=== PATIENT | male | born 1985 | race Caucasian/White ===

== ENCOUNTER 2016-08-21 17:23 | Inpatient (IN) | payer OTHER ==
[~2016-08-21] VITALS: Ht 175.3 cm; Wt 111.3 kg
[2016-08-21 17:59] LABS: BASOPHIL % 0.5 % (0-2); PLATELET COUNT 223 x10^3mcL (130-400); RED CELL DISTRIBUTION WIDTH 13.1 % (11.5-14.5)
[2016-08-21 18:09] LABS: CALCIUM 8.7 mg/dL (8.5-10.1); CARBON DIOXIDE 25.6 mmol/L (21-32); CHLORIDE SERUM 107 mmol/L (98-107); CREATININE SERUM 1.2 mg/dL (0.7-1.3); GFR1 > 60 mL/min; GLUCOSE SERUM 112 mg/dL (74-106); POTASSIUM SERUM 3.8 mmol/L (3.5-5.1); SODIUM SERUM 143 mmol/L (136-145)
[2016-08-21 18:13] LABS: ALBUMIN 3.5 g/dL (3.4-5.0); ALKALINE PHOSPHATASE 104 U/L (46-116); ALT/SGPT 37 U/L (16-63); AST/SGOT 20 U/L (15-37); BILIRUBIN TOTAL 0.4 mg/dL (0.20-1.00)
[2016-08-21 19:38] LABS: AMPHETAMINE QUAL UR NONE DETECTED (NEG <=1000)
[2016-08-22] MEDS ORDERED: ZYPREXA10 M1 PO (00:02)
[2016-08-22] MEDS ORDERED: LAMICTAL200 MG PO (00:03)
[2016-08-22] MEDS ORDERED: LINZESS290 MCG PO (00:04)
[2016-08-22] MEDS ORDERED: HAL5 PO (00:05)
[2016-08-22] MEDS ORDERED: MELOXICAM15 M1 PO (00:17)
[2016-08-22] MEDS ORDERED: LAMOTRIGINE200 M1 PO (00:18)
[2016-08-22] MEDS ORDERED: CLONAZEPAM0.5 MG PO (00:18)
[2016-08-22 01:14] VITALS: BP 137/90
[2016-08-22 02:43] LABS: T3 TOTAL 1.1 ng/mL
[2016-08-22 02:47] LABS: FREE T4 0.89 ng/dL (0.76-1.46); FREE THYROXINE INDEX 2.6 ug/dL (1.4-4.5); T4(THYROXINE) 8.5 ug/dL (4.7-13.3)
[2016-08-22 06:16] LABS: BASOPHIL % 0.4 % (0-2); PLATELET COUNT 212 x10^3mcL (130-400)
[2016-08-22 06:31] LABS: CALCIUM 8.5 mg/dL (8.5-10.1); CARBON DIOXIDE 28.7 mmol/L (21-32); CHLORIDE SERUM 108 mmol/L (98-107); CREATININE SERUM 0.8 mg/dL (0.7-1.3); GFR1 > 60 mL/min; GLUCOSE SERUM 90 mg/dL (74-106); MAGNESIUM 1.9 mg/dL (1.8-2.4); PHOSPHOROUS 4.3 mg/dL (2.5-4.9); POTASSIUM SERUM 4.2 mmol/L (3.5-5.1); SODIUM SERUM 143 mmol/L (136-145)
[2016-08-22 06:37] LABS: microscopic required? NO
[2016-08-22 07:32] LABS: urine erythrocyte NEGATIVE (NEGATIVE)
[2016-08-22 08:27] VITALS: BP 128/81
[2016-08-22 13:07] VITALS: BP 125/76
== END 2016-08-22 16:29 | disposition left against medical advice (07) | DRG 757 ==
LOC: ED 17:23 → DU 23:51
PROVIDERS: Emergency Medicine; ADMIT Family Medicine
DX: F84.0 Autistic disorder (principal); G93.41 Metabolic encephalopathy; G40.909 Epilepsy, unspecified, not intractable, without status epilepticus; F39 Unspecified mood [affective] disorder; Z68.36 Body mass index [BMI] 36.0-36.9, adult; Z90.49 Acquired absence of other specified parts of digestive tract
CPT/HCPCS: 80307; 83880; 84439; G0480; J0515; J1630; J2060; J7030